=== PATIENT | female | born 1950 | race Caucasian/White ===

== ENCOUNTER → 2016-06-08 | Outpatient (CLI) | payer BC ==
[~2016-06-08] MED LIST: ALPR-411 PO; CHOL100010 PO; CYCL10TA6 PO; LEVO125T72 PO; LISI10TA PO; METO1TAB31 PO; WARF3TAB6 PO; ZCRT/40 PO
--- NOTE | 2016-06-08 15:08 | MAMMOGRAPHY REPORT ---
BILATERAL DIGITAL SCREENING MAMMOGRAM WITH CAD: 06/08/2016 CLINICAL HISTORY: Routine screening. Patient has no complaints. TECHNIQUE: Current study was also evaluated with a Computer Aided Detection (CAD) system. Bilatera l CC and MLO views were obtained. COMPARISON: Comparison is made to exams dated: 05/28/2015 mammogram, 05/27/2014 mammogram, 05/26/2013 mammogram, 05/23/2012 mammogram, 05/23/2011 mammogram, and 05/19/2010 mammogram - [facility] nt. BREAST COMPOSITION: There are scattered areas of fibroglandular density in both breasts. FINDINGS: No suspicious masses, calcifications, or areas of architectural distortion are noted in e ither breast. There has been no significant interval change compared to prior exams. A linear scar marker denotes a scar on the right superior breast. Bilateral benign-appearing calcifications, pred ominantly in the right breast, are stable compared to prior exams. IMPRESSION: ACR BI-RADS CATEGORY 2: BENIGN There is no mammographic evidence of malignancy. A 1 year screening mammogram is recommended. The p atient will receive written notification of the results. Approximately 10% of breast cancers are not detected with mammography. A negative mammographic repor t should not delay biopsy if a clinically suggestive mass is present. Lenora Isaac M.D. /:06/08/2016 13:25:21 Textile Machine Operator: Re [employer], [facility] letter sent: Normal 1/2 BI-RADS Code: ACR BI-RADS Category 2: Benign
== END | disposition home or self-care (01) ==
LOC: C.MAMM 12:24
PROVIDERS: ATTEND Family Medicine
DX: Z12.31 Encounter for screening mammogram for malignant neoplasm of breast (principal)

== ENCOUNTER → 2016-09-18 | Outpatient (CLI) | payer BC ==
--- NOTE | 2016-09-18 12:02 | DIAGNOSTIC IMAGING REPORT ---
RIGHT HIP UNILATERAL MIN 2 VIEWS HISTORY: 66-year-old female presents with right hip pain. No reported trauma. COMPARISON: None available TECHNIQUE: AP and frog-leg views of the right hip. FINDINGS: There is moderate joint space narrowing with subchondral sclerosis and marginal spurring of the femoral acetabular joint. No acute fracture, dislocation, or avascular necrosis. No radiopaque foreign body. IMPRESSION: 1. No acute fracture or dislocation. 2. Moderate osteoarthritis of the right hip. Electronically signed by: Miguel Baugh 09/18/2016 12:00 PM Dictated Date/Time: 09/18/2016 11:50 AM
== END | disposition home or self-care (01) ==
LOC: C.RDSM 11:00
PROVIDERS: ATTEND Internal Medicine
DX: M16.11 Unilateral primary osteoarthritis, right hip (principal)

== ENCOUNTER → 2017-07-03 | Outpatient (CLI) | payer BC ==
[~2017-07-03] MED LIST changes: +METO-478 PO; -METO1TAB31 PO
--- NOTE | 2017-07-04 07:50 | MAMMOGRAPHY REPORT ---
BILATERAL DIGITAL SCREENING MAMMOGRAM TOMOSYNTHESIS WITH CAD: 07/03/2017 CLINICAL HISTORY: Routine screening. Patient has no complaints. TECHNIQUE: Breast tomosynthesis in addition to standard 2D mammography was performed. Current study was also evaluated with a Computer Aided Detection (CAD) system. COMPARISON: Comparison is made to exams dated: 06/08/2016 mammogram, 05/28/2015 mammogram, 05/27/2014 m ammogram, 05/26/2013 mammogram, 05/23/2012 mammogram, and 05/23/2011 mammogram - [facility]. BREAST COMPOSITION: There are scattered areas of fibroglandular density in both breasts. FINDINGS: A linear scar marker overlies the medial right breast. There are stable asymmetries in the lateral right breast and punctate microcalcifications bilaterally. No new suspicious mass, computer systems software architect ural distortion or cluster of microcalcifications is seen. IMPRESSION: ACR BI-RADS CATEGORY 1: NEGATIVE There is no mammographic evidence of malignancy. A 1 year screening mammogram is recommended. The pa tient will receive written notification of the results. Approximately 10% of breast cancers are not detected with mammography. A negative mammographic report should not delay biopsy if a clinically suggestive mass is present. Nuha Sneed M.D. ay/:07/03/2017 15:43:28 Innovation Analyst: Dorys PATEL)(Consuelo), [facility] letter sent: Normal 1/2 BI-RADS Code: ACR BI-RADS Category 1: Negative
== END | disposition home or self-care (01) ==
LOC: C.MAMM 12:30
PROVIDERS: ATTEND Family Medicine
DX: Z12.31 Encounter for screening mammogram for malignant neoplasm of breast (principal)

== ENCOUNTER 2025-01-20 11:44 | Observation (INO) ==
--- NOTE | 2025-01-20 12:10 | Emergency Department Note ---
Impression & Plan Acute dyspnea, Acute CHF, Pulmonary edema, Elevated brain natriuretic peptide (BNP) level, Acute hypokalemia, Acute hypoxemic respiratory failure ED Provider Note HISTORY OF PRESENT ILLNESS: Patient is a 74-year-old female presenting with shortness of breath. Patient reports that she has been feeling short of breath for the last 6 days. Reports that symptoms have been getting progressively worse. She reports shortness of breath initially was just with any sort of exertion, but has now progressed to shortness of breath at rest. She states that her shortness of breath is significantly worse when she tries to go up or down her stairs at home. She denies any chest pain. She states she has gained 4 pounds in the last 4 days. She denies any abdominal pain, nausea or vomiting. She is on Eliquis for recent history of CVA. She does not wear any supplemental oxygen at baseline. She does report a nonproductive cough. Reports some nasal congestion. Denies any recent sick contact exposures or recent fever. Denies any DVT or PE history. Denies any history of cardiac stents. ROS: as above PHYSICAL EXAM: Constitutional: Patient appears in no acute distress. HENT: Head: Normocephalic and atraumatic. Eyes: EOMI, PERRL Mouth/Throat: Mucous membranes moist. Neck: Trachea midline. Neck supple. Cardiovascular: Tachycardic with irregular rhythm. No murmurs, rubs or gallops. Intact distal pulses. Pulmonary/Chest: No respiratory distress. Breath sounds clear and equal bilaterally. Coarse breath sounds bilaterally. Decreased breath sounds in the lung bases. On 2 L nasal cannula. Abdominal: Abdomen soft, no tenderness, rebound or guarding. Musculoskeletal: No edema, tenderness or deformity noted. Skin: Warm and dry. No rash, erythema, pallor or cyanosis Psychiatric: Appropriate mood and affect for situation. Neurological: Alert and keenly responsive. CN II-XII grossly intact, moving all extremities equally and fully. MDM: - Vitals signs showed tachycardic and hypoxic. Patient placed on 2 L nasal cannula. - History obtained via patient. History as above. - Chronic conditions affecting care: CVA; COPD; Graves' disease; Afib - Differential diagnoses include, but are not limited to: Congestive heart failure; acute coronary syndrome; COPD/asthma exacerbation; pulmonary edema; pulmonary embolism; pneumonia; pneumothorax; viral syndrome - Order placed for continuous cardiac monitoring. At this time, monitor showed rate of 94 bpm with normal sinus rhythm, per my interpretation. - External medical records reviewed. Discharge summary dated 11/18/2024 was reviewed. Patient was admitted at that time secondary to strokelike symptoms. She did receive TNK on 11/15/2024. - EKG image interpreted by myself showed atrial fibrillation. Rate 94 bpm. QT 368. No acute ischemic changes. - Laboratory workup interpreted by myself showed leukocytosis (WBC 14.32); normal PT/INR; slight hyponatremia (Na 132); hypokalemia (K 3.3); normal troponin; elevated BNP (552) - CXR image reviewed interpreted by myself showed pulmonary edema, per my interpretation. Radiology notes moderate pulmonary edema with moderate left and small right pleural effusions. - Patient on 2L NC. - Viral respiratory panel negative. - Patient given 40 mg IV lasix - Discussion was had with case management rn about patient's case and need for admission - Hospitalist consulted for admission - [facility] and management. ASSESSMENT AND PLAN: Diagnosis: Acute dyspnea; acute CHF; elevated BNP; acute hypokalemia; acute hypoxic respiratory failure; pulmonary edema Plan: Admit Past Med/Surg History Problem List (Updated 01/20/25 @ 15:28 by Rowena Alexander MD) Acute hypoxemic respiratory failure (Acute) Acute hypokalemia (Acute) Elevated brain natriuretic peptide (BNP) level (Acute) Pulmonary edema (Acute) Acute CHF (Acute) Acute dyspnea (Acute) Carotid stenosis, bilateral Cardioembolic stroke Change in vision (Acute) Hx of Graves' disease 2001, "treatment to have my thyroid radioactived out of me" Cerebral artery disease Hypertension controlled, stable per pt New onset a-fib (Acute) Stroke-like symptoms (Acute) Aortic regurgitation Hx of mitral valve prolapse s/p repair Status post right hip replacement (~11/2021) Encounter for pre-operative examination Medical History COPD (chronic obstructive pulmonary disease) History of anxiety Surgical History Hx of cardiac cath 2013, [place], no stents; f/u [facility]>sent to [facility] for Mitral Valve Repair following. Hx of tonsillectomy Hx of colonoscopy Hx of cataract extraction bilat. Hx of mitral valve repair 07/2012, [facility], "repaired valve, did not replace it"; f/u [facility] Social History Smoking Status: Never smoker Second Hand Exposure: No; Do You Dip or Chew Tobacco: No; Hx Alcohol Use: Yes Alcohol type: wine Hx Substance Use: No Preferred Language: Urdu Communication Ability: Effective Statistics Teacher Required: No Beliefs That Will Affect Care: None Current Living Situation: Spouse Feels Safe at Home: Yes Assistive Devices: Glasses Allergies Allergies Allergy/AdvReac Type Severity Reaction Status Date / Time No Known Allergies Allergy Verified 11/27/24 15:38 Home Meds Home Medications Medication Instructions Recorded Confirmed alprazolam 0.5 mg tablet (Xanax) 0.5 mg PO BID PRN Anxiety 10/14/21 01/20/25 atorvastatin 40 mg tablet 40 mg PO DAILY 10/14/21 01/20/25 levothyroxine 137 mcg tablet 137 mcg PO DAILYBB 10/14/21 01/20/25 lisinopril 40 mg tablet 40 mg PO QAM 10/14/21 01/20/25 metoprolol succinate 100 mg 50 mg PO BID 10/14/21 01/20/25 tablet,extended release 24 hr trazodone 50 mg tablet 50 mg PO HS 10/14/21 01/20/25 amlodipine 10 mg tablet 10 mg PO QAM 11/15/24 01/20/25 apixaban 5 mg tablet (Eliquis) 5 mg PO BID 01/20/25 01/20/25 Previous Rx's Medication Instructions Recorded aspirin 81 mg tablet,delayed 81 mg PO QAM #30 tabs 11/18/24 release Results & Data (ED) Vital Signs Vital Signs - 24 hr 01/20/25 11:47 01/20/25 12:15 01/20/25 12:15 Temperature 36.7 C Temperature Source Oral Pulse Rate 92 H 88 Pulse Rate [Apical] Pulse Strength [Apical] Respiratory Rate 22 Respiratory Effort / Characteristics Spontaneous Respiratory Depth Respiratory Pattern Blood Pressure 139/64 Blood Pressure [Right Arm] Blood Pressure Mean 89 Blood Pressure Mean [Right Arm] Blood Pressure Position Sitting Pulse Oximetry 86 L 87 L Oxygen Delivery Method Room Air Nasal Cannula Oxygen Flow Rate 0 Sepsis Recent Fever Within 48 Hours No Sepsis New/Unexplained Change in Mental Status N/A Sepsis Action Taken by Nursing No Action Required Oxygen Flow Rate - Titration 2 Pulse Oximetry Post Tiitration 94 01/20/25 13:15 01/20/25 14:09 Temperature Temperature Source Pulse Rate Pulse Rate [Apical] 94 H Pulse Strength [Apical] Normal Respiratory Rate 18 Respiratory Effort / Characteristics Non-Labored Spontaneous Respiratory Depth Normal Respiratory Pattern Regular Blood Pressure Blood Pressure [Right Arm] 148/76 H 162/89 H Blood Pressure Mean Blood Pressure Mean [Right Arm] 100 113 Blood Pressure Position Pulse Oximetry 92 Oxygen Delivery Method Nasal Cannula Oxygen Flow Rate 2 Sepsis Recent Fever Within 48 Hours Sepsis New/Unexplained Change in Mental Status Sepsis Action Taken by Nursing Oxygen Flow Rate - Titration Pulse Oximetry Post Tiitration Laboratory Data 01/20/25 12:10 01/20/25 12:10 Lab Results 01/20/25 01/20/25 Range/Units 12:10 14:44 WBC 14.32 H (4.8-10.8) K/ul RBC 4.86 (4.20-5.40) M/uL Hgb 13.9 (12.0-16.0) g/dl Hct 42.0 (37.0-47.0) % MCV 86.4 (80.0-100.0) fL MCH 28.6 (25.0-34.0) pg MCHC 33.1 (32.0-36.0) g/dL RDW Std Deviation 49.5 H (36.4-46.3) fL RDW Coeff of Ginny 15.8 H (11.5-14.5) % Plt Count 533 H (130-400) K/uL MPV 10.4 (9.4-12.4) fL Immature Gran % (Auto) 0.5 % Neut % (Auto) 85.9 % Lymph % (Auto) 7.2 % Mineral % (Auto) 5.1 % Eos % (Auto) 0.5 % Baso % (Auto) 0.8 % Neut # (Auto) 12.31 H (1.40-6.50) K/uL Lymph # (Auto) 1.03 L (1.20-3.40) K/uL Mineral # (Auto) 0.73 H (0.11-0.59) K/uL Eos # (Auto) 0.07 (0.00-0.50) K/uL Baso # (Auto) 0.11 (0.00-0.20) K/uL Immature Gran # (Auto) 0.07 (0.01-0.20) K/uL PT 11.8 (9.0-12.0) Seconds INR 1.1 (0.9-1.1) Sodium 132 L (136-145) mmol/L Potassium 3.3 L (3.5-5.1) mmol/L Chloride 99 (98-107) mmol/L Carbon Dioxide 23 (21-32) mmol/L Anion Gap 10 (3-11) BUN 13 (6-23) mg/dl Creatinine 0.59 L (0.6-1.2) mg/dl Est Cr Clr Drug Dosing 79.3 ml/min eGFR 93.34 BUN/Creatinine Ratio 22.0 H (10-20) Glucose 124 H (70-99(Fasting)) mg/dl Calcium 9.7 (8.6-10.3) mg/dl Magnesium 2.1 (1.7-2.4) mg/dl Total Bilirubin 1.0 (0.2-1.0) mg/dl AST 25 (13-39) U/L ALT 23 (7-52) U/L Alkaline Phosphatase 97 (34-104) U/L Troponin I High Sens 11.3 (0-14) pg/ml B-Natriuretic Peptide 552 H (0-100) pg/ml Total Protein 7.6 (6.0-8.3) gm/dl Albumin 4.4 (3.4-5.0) gm/dl Globulin 3.2 (2.5-4.0) gm/dl Albumin/Globulin Ratio 1.4 (0.9-2) Urine Color Yellow Urine Appearance Clear (Clear) Urine pH 6.5 (4.5-7.5) Ur Specific [place] 1.008 (1.000-1.030) Urine Protein Negative (Negative) Urine Glucose (UA) Negative (Negative) Urine Ketones Negative (Negative) Urine Blood Negative (Negative) Urine Nitrite Negative (Negative) Urine Bilirubin Negative (Negative) Urine Urobilinogen Negative (Negative) Ur Leukocyte Esterase Negative (Negative) Urine Comment Adenovirus (PCR) Not Detected (NotDetected) B. pertussis DNA (PCR) Not Detected (NotDetected) B.parapertussis DNA PCR Not Detected (NotDetected) C. pneumoniae DNA (PCR) Not Detected (NotDetected) Coronavirus OC43 (PCR) Not Detected (NotDetected) Coronavirus HKU1 (PCR) Not Detected (NotDetected) Coronavirus 229E (PCR) Not Detected (NotDetected) SARS-CoV-2 (PCR) Not Detected (NotDetected) Coronavirus NL63 (PCR) Not Detected (NotDetected) Human Metapneumovir PCR Not Detected (NotDetected) Influenza Type A (PCR) Not Detected (NotDetected) Influenza Type B (PCR) Not Detected (NotDetected) M. pneumoniae (PCR) Not Detected (NotDetected) Parainfluenza 1 (PCR) Not Detected (NotDetected) Parainfluenza 2 (PCR) Not Detected (NotDetected) Parainfluenza 3 (PCR) Not Detected (NotDetected) Parainfluenza 4 (PCR) Not Detected (NotDetected) RSV (PCR) Not Detected (NotDetected) Entero/Rhino (PCR) Not Detected (NotDetected) Administered Medications Discontinued Medications Furosemide (Furosemide 40 Mg/4 Ml Vial) 40 mg IV ONE ONE Stop: 01/20/25 14:04 Last Admin: 01/20/25 14:08 Dose: 40 mg Documented By: CAP Potassium Chloride (Potassium Chloride Crtab 20 Meq Tabcr) 40 meq PO NOW STA Stop: 01/20/25 14:52 Last Admin: 01/20/25 14:58 Dose: 40 meq Documented By: CAP Imaging Data Radiologist's Impression: Chest X-Ray 01/20/25 12:04 XR chest 1V portable CLINICAL HISTORY: Dyspnea. COMPARISON STUDY: Chest radiograph October 24, 2021. FINDINGS: There is no pneumothorax. Moderate left and small right pleural effusions are noted. There are suspected bibasilar opacities. Interstitial thickening is present. The heart is moderately enlarged. Prosthetic cardiac valve is again noted. Bilateral hilar prominence is likely related to pulmonary vasculature. IMPRESSION: Cardiomegaly. Moderate pulmonary edema with moderate left and small right pleural effusions with associated bibasilar opacities which could represent atelectasis or consolidation. Radiographic follow-up is recommended. ACT 112: Negative or not required by law. Electronically signed by: Emanuel Stallings M.D. 01/20/2025 1:19 PM Discharge Plan Visit Data Chief Complaint: Cardiac Assessment Stated Complaint: CONGESTED HEART FAILURE ED Provider: Rowena Alexander Discharge Problem: Acute dyspnea, Acute CHF, Pulmonary edema, Elevated brain natriuretic peptide (BNP) level, Acute hypokalemia, Acute hypoxemic respiratory failure Patient Disposition: Admitted As Inpatient Condition: Fair Forms Stand Alone Forms: [facility] [employer] Prescriptions Prescriptions: No Action atorvastatin 40 mg Tablet 40 mg PO DAILY trazodone 50 mg Tablet 50 mg PO HS levothyroxine 137 mcg Tablet 137 mcg PO DAILYBB metoprolol succinate 100 mg Tablet Extended Release 24 Hr 50 mg PO BID alprazolam [Xanax] 0.5 mg Tablet 0.5 mg PO BID PRN (Reason: Anxiety) lisinopril 40 mg Tablet 40 mg PO QAM Hold Instructions: Resume on 11/25/24. Eliquis 5 mg tablet 5 mg PO BID amlodipine 10 mg tablet 10 mg PO QAM Hold Instructions: Resume on 11/20/24. aspirin 81 mg Tablet,Delayed Release (Dr/Ec) 81 mg PO QAM Qty: 30 0RF Referrals Referrals: Sierra Flores PA-C [Primary Care Provider] -
[2025-01-20 12:34] LABS: Hematocrit (blood only) 42.0 % (37.0-47.0); Hemoglobin 13.9 g/dl (12.0-16.0); Immature Granulocytes # (auto) 0.07 K/uL (0.01-0.20); Immature Granulocytes % (auto) 0.5 %; Mean Corpuscular Hemoglobin 28.6 pg (25.0-34.0); Mean Corpuscular Volume 86.4 fL (80.0-100.0); Platelet Count 533 K/uL (130-400); RDW Standard Deviation 49.5 fL (36.4-46.3); Red Blood Count 4.86 M/uL (4.20-5.40); White Blood Count 14.32 K/ul (4.8-10.8)
[2025-01-20 12:54] LABS: Alanine Aminotransferase 23.0 U/L (7-52); Albumin Globulin Ratio 1.4 (0.9-2); Albumin Level 4.4 gm/dl (3.4-5.0); Alkaline Phosphatase 97.0 U/L (34-104); Anion Gap 10.0 (3-11); Bilirubin,Total 1.0 mg/dl (0.2-1.0); Blood Urea Nitrogen 13.0 mg/dl (6-23); Calcium 9.7 mg/dl (8.6-10.3); Carbon Dioxide 23.0 mmol/L (21-32); Chloride 99.0 mmol/L (98-107); Creatinine Clr Calc Pharmacy 79.3 ml/min; Globulin 3.2 gm/dl (2.5-4.0); Glucose 124.0 mg/dl (70-99(Fasting)); Magnesium 2.1 mg/dl (1.7-2.4); Potassium 3.3 mmol/L (3.5-5.1); Sodium 132.0 mmol/L (136-145); Total Protein 7.6 gm/dl (6.0-8.3)
[2025-01-20 12:58] LABS: INR 1.1 (0.9-1.1); Prothrombin Time 11.8 Seconds (9.0-12.0)
--- NOTE | 2025-01-20 13:20 | XRay Report ---
XR chest 1V portable CLINICAL HISTORY: Dyspnea. COMPARISON STUDY: Chest radiograph October 24, 2021. FINDINGS: There is no pneumothorax. Moderate left and small right pleural effusions are noted. There are suspected bibasilar opacities. Interstitial thickening is present. The heart is moderately enlarg ed. Prosthetic cardiac valve is again noted. Bilateral hilar prominence is likely related to pulmonar y vasculature. IMPRESSION: Cardiomegaly. Moderate pulmonary edema with moderate left and small right pleural effusi ons with associated bibasilar opacities which could represent atelectasis or consolidation. Radiograp hic follow-up is recommended. ACT 112: Negative or not required by law. Electronically signed by: Emanuel Stallings M.D. 01/20/2025 1:19 PM
[2025-01-20 13:39] LABS: Chlamydia pneumoniae PCR Not Detected (NotDetected); Coronavirus 229E PCR Not Detected (NotDetected); Coronavirus CoV-2 (COVID19)PCR Not Detected (NotDetected); Coronavirus HKU1 PCR Not Detected (NotDetected); Coronavirus NL63 PCR Not Detected (NotDetected); Coronavirus OC43PCR Not Detected (NotDetected); Human Metapneumovirus PCR Not Detected (NotDetected); Parainfluenza Virus 1 PCR Not Detected (NotDetected); Parainfluenza Virus 2 PCR Not Detected (NotDetected); Parainfluenza Virus 3 PCR Not Detected (NotDetected); Parainfluenza Virus 4 PCR Not Detected (NotDetected); Respiratory Syncytial VirusPCR Not Detected (NotDetected); Rhinovirus/Enterovirus PCR Not Detected (NotDetected)
[2025-01-20] MEDS: FUROSEMIDE 40 MG/4 ML VIAL IV ONE (14:08)
--- NOTE | 2025-01-20 14:50 | History & Physical Report ---
<Statement entered by Corbin Reyes, - 01/20/25 17:11> seen and examined New onset CHF. suspect HFpEF. cardio consulted. continue diuresis. checking CT chest w/o contrast to r/o PNA. 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 Suspected CHF, new onset Dyspnea, 4# wt gain x 5 days BNP 552 CXR with cardiomegaly. Moderate pulmonary edema with moderate left and small right pleural effusions with associated bibasilar opacities which could represent atelectasis or consolidation Last echo 11/10 with mild MS, mild MR Given 40mg IV lasix in ED Repeat echo ordered, strict I&Os, daily weights, routine consult for Dr. Tyson, continue daily 40mg IV Lasix for now, low sodium diet Leukocytosis ? Reactive but CT chest wo con pending to better evaluate for PNA given cough and congestion Atrial fibrillation Diagnosed in October in setting of cardioembolic stroke Has been persistent but rate controlled per Dr. Tyson Anticoagulated on Eliquis Continue Toprol H/o Embolic CVA S/P TNK at 1921 on 11/15/24 Continue aspirin, Eliquis, statin Hypertension Continue Toprol, amlodipine, lisinopril Dyslipidemia Continue Statin Graves' disease s/p surgery Postsurgical hypothyroidism Continue levothyroxine Anxiety PRN home Xanax DVT Ppx: Eliquis Code status: FULL PCP: MANDEEP Flores Dispo: Admitted to PCU Patient seen in collaboration with Dr. Reyes. Please see addendum. I spent a total of 75 minutes coordinating, documenting, and providing care for this patient excluding time spent in the performance of separately billed services or time spent by another provider/QHP. 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 Patient was notably SOB when walking into an appointment last week and then noticed she was SOB at rest while watching TV 5 days ago. Associated with palpitations. Since then, SOB has progressed and also endorses dry cough and nasal congestion. Thought at first she was having allergies but SOB persisted through the weekend into today, prompting presentation in ED. Notes 4# weight gain in 5 days despite poor appetite. [place] warm last evening but did not take temperature. No chills, headache, lightheadedness, CP, N/V, abd pain, dysuria, diarrhea or constipation. Follows with Dr. Tyson for cardiology and was last see mid-November. Last echo in 10/2024 with mild MS, mild MR. A fib has been persistent since diagnosis 10/2024 in setting of CVA. Asymptomatic and rate controlled since then. Anticoagulated on Eliquis. Allergies Allergy/AdvReac Type Severity Reaction Status Date / Time No Known Allergies Allergy Verified 11/27/24 15:38 Home Medications Medication Instructions Recorded Confirmed Type alprazolam 0.5 mg tablet (Xanax) 0.5 mg PO BID PRN Anxiety 10/14/21 01/20/25 History atorvastatin 40 mg tablet 40 mg PO DAILY 10/14/21 01/20/25 History levothyroxine 137 mcg tablet 137 mcg PO DAILYBB 10/14/21 01/20/25 History lisinopril 40 mg tablet 40 mg PO QAM 10/14/21 01/20/25 History metoprolol succinate 100 mg 50 mg PO BID 10/14/21 01/20/25 History tablet,extended release 24 hr trazodone 50 mg tablet 50 mg PO HS 10/14/21 01/20/25 History amlodipine 10 mg tablet 10 mg PO QAM 11/15/24 01/20/25 History aspirin 81 mg tablet,delayed 81 mg PO QAM #30 tabs 11/18/24 01/20/25 Rx release apixaban 5 mg tablet (Eliquis) 5 mg PO BID 01/20/25 01/20/25 History Past Med/Surg History Problem List (Updated 01/20/25 @ 16:48 by Fabiana Mayorga PA-C) CHF (congestive heart failure) Dyspnea Acute hypoxemic respiratory failure (Acute) Acute hypokalemia (Acute) Elevated brain natriuretic peptide (BNP) level (Acute) Pulmonary edema (Acute) Acute CHF (Acute) Acute dyspnea (Acute) Carotid stenosis, bilateral Change in vision (Acute) Hx of Graves' disease 2001, "treatment to have my thyroid radioactived out of me" Cerebral artery disease Hypertension controlled, stable per pt Stroke-like symptoms (Acute) Aortic regurgitation Hx of mitral valve prolapse s/p repair Medical History (Updated 01/20/25 @ 16:48 by Fabiana Mayorga PA-C) Cardioembolic stroke COPD (chronic obstructive pulmonary disease) History of anxiety Surgical History (Updated 01/20/25 @ 16:41 by Fabiana Mayorga PA-C) Status post right hip replacement (~11/2021) [place]x of cardiac cath 2012, [place], no stents; f/u German Key>sent to [facility] for Mitral Valve Repair following. Hx of tonsillectomy Hx of colonoscopy Hx of cataract extraction bilat. Hx of mitral valve repair 07/2012, [facility], "repaired valve, did not replace it"; f/u German Landa Social History Smoking Status: Never smoker Second Hand Exposure: No; Do You Dip or Chew Tobacco: No; Hx Alcohol Use: Yes Alcohol type: wine Hx Substance Use: No Preferred Language: Mauritian Communication Ability: Effective Salesperson New Cars Required: No Beliefs That Will Affect Care: None Current Living Situation: Spouse Other Information That Helps Us Care for You: No Feels Safe at Home: Yes Safety Concerns: Feels Safe At This Time Assistive Devices: Glasses Review of Systems Review of Systems: At least ten systems reviewed and negative except as noted in the HPI. Physical Exam Physical Exam: General Appearance: WD/WN, vitals as above, NAD, sitting up in bed, pleasant, conversing easily Head: normocephalic, atraumatic Eyes: normal inspection, PERRL, conjunctivae normal, anicteric sclerae ENT: external ear and nose normal, oropharynx normal Neck: normal visual inspection Respiratory: increased respiratory effort, diminished at bases bilaterally. No accessory muscle use Cardiovascular: irregular rate & rhythm, normal peripheral pulses, no BLE edema. Vessels: + JVD Chest: normal inspection of chest Abdomen/GI: normal bowel sounds, soft, nontender, no hepatosplenomegaly Extremities/Musculoskeletal: no cyanosis or clubbing, extremities motor strength 5/5 Neurologic: PERRL, EOMI, accommodation nl, no face palsy, no dysarthria, CN's II-XI intact bilaterally and moves all extremities Psychiatric: A+Ox3, euthymic affect Skin: no rashes, normal color, warm/dry Results & Data Results & Data Vital Signs (Past 12 Hours) Vital Signs Temp Pulse Pulse Resp BP BP Pulse Ox 01/20/25 14:09 162/89 H 01/20/25 13:15 94 H 18 148/76 H 92 01/20/25 12:15 88 01/20/25 12:15 87 L 01/20/25 11:47 36.7 C 92 H 22 139/64 86 L O2 Del Method O2 Flow Rate 01/20/25 14:09 01/20/25 13:15 Nasal Cannula 2 01/20/25 12:15 01/20/25 12:15 Nasal Cannula 0 01/20/25 11:47 Room Air Laboratory Results Short CBC 01/20/25 Range/Units 12:10 WBC 14.32 H (4.8-10.8) K/ul Hgb 13.9 (12.0-16.0) g/dl Hct 42.0 (37.0-47.0) % Plt Count 533 H (130-400) K/uL BMP 01/20/25 12:10 Sodium 132 L Potassium 3.3 L Chloride 99 Carbon Dioxide 23 BUN 13 Creatinine 0.59 L Glucose 124 H Calcium 9.7 Liver Function 01/20/25 Range/Units 12:10 Total Bilirubin 1.0 (0.2-1.0) mg/dl AST 25 (13-39) U/L ALT 23 (7-52) U/L Alkaline Phosphatase 97 (34-104) U/L Albumin 4.4 (3.4-5.0) gm/dl Urine 01/20/25 Range/Units 14:44 Urine Color Yellow Urine Appearance Clear (Clear) Urine pH 6.5 (4.5-7.5) Ur Specific [place] 1.008 (1.000-1.030) Urine Protein Negative (Negative) Urine Glucose (UA) Negative (Negative) Diagnostic Findings Chest X-Ray 01/20/25 12:04 XR chest 1V portable CLINICAL HISTORY: Dyspnea. COMPARISON STUDY: Chest radiograph October 24, 2021. FINDINGS: There is no pneumothorax. Moderate left and small right pleural effusions are noted. There are suspected bibasilar opacities. Interstitial thickening is present. The heart is moderately enlarged. Prosthetic cardiac valve is again noted. Bilateral hilar prominence is likely related to pulmonary vasculature. IMPRESSION: Cardiomegaly. Moderate pulmonary edema with moderate left and small right pleural effusions with associated bibasilar opacities which could represent atelectasis or consolidation. Radiographic follow-up is recommended. ACT 112: Negative or not required by law. Electronically signed by: Emanuel Stallings M.D. 01/20/2025 1:19 PM ECG Additional Comments: atrial fibrillation at 94 bpm
[2025-01-20 14:54] LABS: Appearance Urine Clear (Clear); Glucose Urine UA Negative (Negative)
[2025-01-20] MEDS: POTASSIUM CHLORIDE CRTAB 20 MEQ TABCR PO STA (14:58)
[2025-01-20] MEDS ORDERED: ACETAMINOPHEN 325 MG TAB PO PRN (16:05)
[2025-01-20] MEDS ORDERED: ONDANSETRON INJ 2 MG/ML 2 ML VIAL IV PRN (16:05)
[2025-01-20] MEDS ORDERED: MELATONIN 3 MG TAB PO PRN (16:05)
[2025-01-20] MEDS: APIXABAN 5 MG TABLET PO SCH (20:05)
[2025-01-20] MEDS: METOPROLOL SUCC 50MG EXT REL TAB PO SCH (20:06)
--- NOTE | 2025-01-20 21:25 | CT Scan Report ---
Exam(s): CT CHEST Without Contrast EXAM: CT Chest Without Intravenous Contrast CLINICAL HISTORY: Reason for exam: eval for PNA. TECHNIQUE: Axial computed tomography images of the chest without intravenous contrast. CTDI is 12.7 mGy and DLP is 386 mGy-cm. Automated exposure control was utilized for the study. A dose lowering technique was utilized adhering to the principles of ALARA. COMPARISON: Chest x-ray from 01/20/2025 FINDINGS: Lungs: Prominent pulmonary vasculature with perihilar and bibasilar edema and atelectasis. No mass. Pleural space: Small bilateral pleural effusions layering posteriorly measuring up to 5 cm thick on the right and 3 cm thick on the left. No pneumothorax. Heart: Severe mitral calcification. The heart is mildly enlarged. No pericardial effusion is seen. No significant coronary artery calcifications. Bones/joints: Mild degenerative changes in the thoracic spine. No acute fracture or destructive bone lesion is seen. Soft tissues: Unremarkable. Vasculature: Thoracic aorta is mildly calcified. The aortic arch is upper limits of normal measuring 3.8 mm. This is a noncontrast study. No thoracic aortic aneurysm. Lymph nodes: Unremarkable. No enlarged lymph nodes. IMPRESSION: 1. Cardiomegaly and severe mitral calcification. Prominent pulmonary vasculature with perihilar and bibasilar edema and atelectasis. 2. Small bilateral pleural effusions layering posteriorly measuring up to 5 cm thick on the right and 3 cm thick on the left. Consider CHF. Electronically signed by: Hussein Mayorga MD 01/20/25 21:24 PM
[2025-01-21 06:12] LABS: Hematocrit (blood only) 36.9 % (37.0-47.0); Hemoglobin 12.1 g/dl (12.0-16.0); Mean Corpuscular Hemoglobin 28.7 pg (25.0-34.0); Mean Corpuscular Volume 87.4 fL (80.0-100.0); Platelet Count 436 K/uL (130-400); RDW Standard Deviation 49.6 fL (36.4-46.3); Red Blood Count 4.22 M/uL (4.20-5.40); White Blood Count 13.96 K/ul (4.8-10.8)
[2025-01-21] MEDS: LEVOTHYROXINE SODIUM 137 MCG TABLET PO SCH (06:45)
[2025-01-21 06:48] LABS: Anion Gap 8.0 (3-11); Blood Urea Nitrogen 12.0 mg/dl (6-23); Calcium 8.7 mg/dl (8.6-10.3); Carbon Dioxide 23.0 mmol/L (21-32); Chloride 105.0 mmol/L (98-107); Creatinine Clr Calc Pharmacy 80.5 ml/min; Glucose 102.0 mg/dl (70-99(Fasting)); Magnesium 2.0 mg/dl (1.7-2.4); Potassium 4.0 mmol/L (3.5-5.1); Sodium 136.0 mmol/L (136-145)
[2025-01-21] MEDS: ATORVASTATIN 40 MG TAB PO SCH (09:00)
[2025-01-21] MEDS: ASPIRIN 81 MG ECTAB PO SCH (09:01)
[2025-01-21] MEDS: FUROSEMIDE 40 MG/4 ML VIAL IV SCH ×2 (09:02→17:41)
--- NOTE | 2025-01-21 10:00 | XCELERA ---
[id number]
--- NOTE | 2025-01-21 11:04 | Cardiology Consultation ---
Date of Consultation January 21, 2025 Assessment & Plan (1) CHF (congestive heart failure): 2. Mitral valve repairPostrepair with annuloplasty ring 2012. Mild MS, mild to moderate MR on echo 02/10 3. Persistent AFdiagnosed 10/2024 in the setting of CVA. Asymptomatic, [id number] 7. On Eliquis 4. Moderate AI 5. DyslipidemiaLDL 80 10/2024, coronary artery calcification on chest CT 6. HypertensionCCB, MAKENNA, BB 7. Mild ICA disease, INDUSTRIAL CLEANING TECHNICIAN/vertebral disease 8. Graves' disease post GOMEZ Admitted with new acute heart failure with preserved ejection fraction. No clear precipitants. Some concern may be more susceptible to recurrent heart failure with persistent AF and new at least moderate AI Still with persistent congestion on exam Plan on continued IV diuresis and GDMT. Increase Lasix to 40 mg twice daily Start SGLT2 Likely will add spironolactone at some point Continue to monitor I's/O's, daily weights, creatinine Continue current Eliquis, Toprol-XL Continue current amlodipine, lisinopril Continue statin Long-term will consider cardioversion/rhythm control when closer to euvolemic If recurrent heart failure episodes as an outpatient may need further evaluation of valvular disease/AI with MORENITA Will continue to follow. History of Present Illness Attending Physician: Isra Aviles MD History of Present Illness Ms. Gómez is a very pleasant 74 year-old woman seen today in hospital for new acute heart failure. She is well-known to me from the outpatient setting, followed for her mitral valve disease post remote repair. More recently was seen 11/2024 here today for after recent CVA in the setting of newly diagnosed AF. About 1 week ago started noting increased shortness of breath initially with exertion, going up steps. Accompanied by wheezing and initially thought was having allergies to new furniture. Shortness of breath progressed to minimal exertion and eventually at rest. Denies any chest pain. No palpitations. No real lower extremity edema. Mild orthopnea. No recent viral illness. No change in diet. Recorded weight up 8 pounds from 11/2024. In ED hypertensive to 160s, minimally hypoxic to high 80s. Chest x-ray showed new pulmonary edema and CT scan with edema and moderate bilateral pleural effusions. BNP elevated at 552. HS TropI normal. ECG again showed persistent AF, ventricular rate 94 with old anterior infarct and no new ST changes. Repeat echo this morning showed EF 60% with no new wall motion abnormalities. Has at least moderate AI, mild to moderate MR. Signs of elevated left atrial filling pressures and moderate pulmonary hypertension. Has received 1 dose of IV Lasix yesterday and additional dose this morning, - 1800, recorded weights unchanged. Today reports modest improvement in breathing but has not done significant walking. Prior cardiovascular history includes: Acute CVA treated with TNK [facility] 11/15/2024 with acute CVA and treated with TNK. Noted to be in rate controlled AF. Brain MRI with multifocal abnormalities consistent with embolic infarcts. Head/neck CTA with approximately 50% bilateral proximal ICA disease (mild on my review). Multifocal INDUSTRIAL CLEANING TECHNICIAN disease and stenosis of right vertebral origin. Seen by vascular surgery, no revascularization recommended. Minimal residual visual field defect on discharge. Discharged on new Eliquis. Persistent AF Severe MR secondary to flail P2 leaflet post mitral valve repair with angioplasty ring (29 mm Guevara ring) 07/24/2012 Dr. Jayjay Torres Brief Postoperative atrial fibrillation No significant CAD on cardiac cath in 2012 Dyslipidemia Hypertension Prior PVCs Most recent lipids: 10/2024: Total cholesterol 25, triglycerides 144, HDL 58, LDL 80, A1c 4.7 07/2021: Total cholesterol 99, triglycerides 130, HDL 61, LDL 102 Recent cardiovascular studies- Echo 10/2024: EF 55%, moderate AI, mild mitral stenosis post angioplasty ring, mild MR Echo 01/2023: LVEF 55%, moderate LVH, borderline dilated RV with normal function. Well-functioning mitral valve repair with mild mitral stenosis (MG 3.7 at 59 bpm) mild MR, moderate AI, DD 2. Normal RA/PA Stress (exercise echo) (06/2017): Negative. 6: 53, 8.3 METS, EF 60%, mild LVH, DD 1, no MR, mild mitral stenosis Family history: No premature CAD or SCD Social history: Non-smoker. . Previously worked in [employer] for [employer] Allergies Allergy/AdvReac Type Severity Reaction Status Date / Time No Known Allergies Allergy Verified 11/27/24 15:38 Home Medications Medication Instructions Recorded Confirmed Type alprazolam 0.5 mg tablet (Xanax) 0.5 mg PO BID PRN Anxiety 10/14/21 01/20/25 History atorvastatin 40 mg tablet 40 mg PO DAILY 10/14/21 01/20/25 History levothyroxine 137 mcg tablet 137 mcg PO DAILYBB 10/14/21 01/20/25 History lisinopril 40 mg tablet 40 mg PO QAM 10/14/21 01/20/25 History metoprolol succinate 100 mg 50 mg PO BID 10/14/21 01/20/25 History tablet,extended release 24 hr trazodone 50 mg tablet 50 mg PO HS 10/14/21 01/20/25 History amlodipine 10 mg tablet 10 mg PO QAM 11/15/24 01/20/25 History aspirin 81 mg tablet,delayed 81 mg PO QAM #30 tabs 11/18/24 01/20/25 Rx release apixaban 5 mg tablet (Eliquis) 5 mg PO BID 01/20/25 01/20/25 History Patient History Medical History (Updated 01/20/25 @ 16:48 by Fabiana Mayorga PA-C) Cardioembolic stroke COPD (chronic obstructive pulmonary disease) History of anxiety Surgical History (Updated 01/20/25 @ 16:41 by Fabiana Mayorga PA-C) Status post right hip replacement (~11/2021) [place] of cardiac cath 2012, [place], no stents; f/u German Key>sent to [facility] for Mitral Valve Repair following. Hx of tonsillectomy Hx of colonoscopy Hx of cataract extraction bilat. Hx of mitral valve repair 07/2012, [facility], "repaired valve, did not replace it"; f/u Dr. Brett Rhodes esteal Social History Smoking Status: Never smoker Second Hand Exposure: No; Do You Dip or Chew Tobacco: No; Hx Alcohol Use: Yes Alcohol type: wine Hx Substance Use: No Preferred Language: Comoran Communication Ability: Effective Telegraph Inspector Required: No Beliefs That Will Affect Care: None Current Living Situation: Spouse Other Information That Helps Us Care for You: No Feels Safe at Home: Yes Safety Concerns: Feels Safe At This Time Assistive Devices: None Review of Systems Review of Systems: All systems reviewed & are unremarkable except as noted in HPI & below Physical Exam Physical Exam: General: Comfortable HEENT: Sclerae anicteric Lungs: Decreased breath sounds at bases bilaterally Cardiac: Irregular irregular, 2 out of 6 systolic ejection murmur heard best the right upper sternal border, faint diastolic murmur heard over left lower sternal border Vascular: 2+ radial Abdomen: Soft, nontender Extremities: Well perfused, no peripheral edema, no varicose veins or reticular veins. Neuro: Nonfocal Psych: Alert orient x3, normal affect and mood Results & Data Vital Signs (Past 12 Hours) Vital Signs Temp Pulse Resp BP Pulse Ox O2 Del Method O2 Flow Rate 01/21/25 09:20 Nasal Cannula 2 01/21/25 07:40 98.1 F 100 H 18 150/94 H 93 Nasal Cannula 3 01/21/25 02:53 98.2 F 86 18 159/89 H 91 Nasal Cannula 3 01/20/25 23:07 97.5 F L 85 18 149/66 H 96 Nasal Cannula 3 PG Care Time/CCT Total # of Minutes Spent Total Time Spent with Patient: Total time spent is greater than 50% in coordination of care (as documented) at patient's floor/unit and/or counseling patient: Coding Level of Care Code 63863 INT INP/OBS CARE 2/55MIN Diagnoses CHF (congestive heart failure) I50.9
--- NOTE | 2025-01-21 12:26 | Electrocardiogram Report ---
Test Reason : Blood Pressure : */* mmHG Vent. Rate : 94 BPM Atrial Rate : * BPM P-R Int : * ms QRS Dur : 96 ms QT Int : 368 ms P-R-T Axes : * -34 83 degrees QTcB Int : 460 ms Atrial fibrillation Left axis deviation Anterior infarct (cited on or before 15-Nov-2024) Abnormal ECG When compared with ECG of 27-Nov-2024 15:41, (unconfirmed) QRS axis Shifted left T wave inversion no longer evident in Anterior leads Nonspecific T wave abnormality now evident in Lateral leads Confirmed by Daniel Mathew ([id number]) on 01/21/2025 12:26:38 PM Referred By: REFERRED SELF Confirmed By: Daniel Mathew
--- NOTE | 2025-01-21 12:51 | Hospitalist Progress Note ---
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 CHF, new onset Dyspnea, 4# wt gain x 5 days BNP 552 CXR with cardiomegaly. Moderate pulmonary edema with moderate left and small right pleural effusions with associated bibasilar opacities which could represent atelectasis or consolidation Last echo 11/10 with mild MS, mild MR Given 40mg IV lasix in ED Clinically better since admission but is still requiring 2 L to maintain saturation Will continue Lasix at the current dose Echo of the heart showednormal LV size, moderate concentric LVH, LVEF 60 to 65% without any regional wall motion abnormalities, normal RV size and mildly reduced function, moderate aortic regurgitation, post mitral valve repair with annuloplasty ring mild mitral stenosis and mild to moderate mitral regurgitation moderate pulmonary hypertension and compared with prior study of 11/16/2024 pulmonary hypertension is new Likely diastolic heart failure with atrial fibrillation with RVRresolved now Appreciate cardiology input and recommendation Leukocytosis Reactive but CT chest wo con pending to better evaluate for PNA given cough and congestion No source of infection and the white count remains mildly elevated at 13.96 Atrial fibrillation Diagnosed in October in setting of cardioembolic stroke Has been persistent but rate controlled per Dr. Tyson Anticoagulated on Eliquis Continue Toprol Heart rate is controlled at 72 currently continue current medications H/o Embolic CVA S/P TNK at 1921 on 11/15/24 Continue aspirin, Eliquis, statin Hypertension Continue Toprol, amlodipine, lisinopril Dyslipidemia Continue Statin Graves' disease s/p surgery Postsurgical hypothyroidism Continue levothyroxine Will recheck TSH Anxiety PRN home Xanax DVT Ppx: Eliquis Code status: FULL PCP: MANDEEP Floers Dispo: Admitted to PCU Admission and Anticipated Discharge Date Admission Date: January 20, 2025 Subjective 01/21/2025 The patient was seen and examined in telemetry unit Admitted with exertional shortness of breath and also weight gain for about 4 to 5 pounds in 1 week Denies any palpitations and/or chest pain Has been feeling much better since admission Review of Systems Review of Systems: All systems reviewed and unremarkable except as noted below Physical Exam Physical Exam: Lying in bed without any acute distress Constitutional: well developed, well nourished and + ill appearing Eyes: PERRL, conjunctivae normal, anicteric sclerae ENMT: external ear and nose normal, oropharynx normal Neck: trachea midline, no thyromegaly Respiratory: + respiratory distress (Minimal respirat ory distress at rest.) Auscultation: + diminished lung sounds and + crackles (Bibasilar crackles) Cardiovascular: Rate/Rhythm: + irregularly irregular; not tachycardic Heart Sounds: normal S1 and normal S2; no murmur Extremities: + edema (Trace edema bilaterally) Gastrointestinal (Abdomen): Inspection/Auscultation: normal bowel sounds; abdomen not distended Percussion/Palpation: abdomen soft; abdomen nontender Musculoskeletal: No acute arthritis involving any of the joint Neurologic: normal touch/pain/proprioception and moves all extremities; no focal motor deficits Lymphatic: no cervical or axillary lymphadenopathy Results & Data Results & Data Vital Signs (Past 12 Hours) Vital Signs Temp Pulse Pulse Resp BP Pulse Ox O2 Del Method 01/21/25 11:31 36.6 C 72 18 120/72 92 Nasal Cannula 01/21/25 11:08 94 H 01/21/25 09:20 Nasal Cannula 01/21/25 07:40 36.7 C 100 H 18 150/94 H 93 Nasal Cannula 01/21/25 02:53 36.8 C 86 18 159/89 H 91 Nasal Cannula O2 Flow Rate 01/21/25 11:31 2 01/21/25 11:08 01/21/25 09:20 2 01/21/25 07:40 3 01/21/25 02:53 3 Laboratory Results Short CBC 01/21/25 Range/Units 05:44 WBC 13.96 H (4.8-10.8) K/ul Hgb 12.1 (12.0-16.0) g/dl Hct 36.9 L (37.0-47.0) % Plt Count 436 H (130-400) K/uL BMP 01/20/25 01/21/25 12:10 05:44 Sodium 132 L 136 Potassium 3.3 L 4.0 D Chloride 99 105 Carbon Dioxide 23 23 BUN 13 12 Creatinine 0.59 L 0.58 L Glucose 124 H 102 H Calcium 9.7 8.7 Liver Function 01/20/25 Range/Units 12:10 Total Bilirubin 1.0 (0.2-1.0) mg/dl AST 25 (13-39) U/L ALT 23 (7-52) U/L Alkaline Phosphatase 97 (34-104) U/L Albumin 4.4 (3.4-5.0) gm/dl Urine 01/20/25 Range/Units 14:44 Urine Color Yellow Urine Appearance Clear (Clear) Urine pH 6.5 (4.5-7.5) Ur Specific [place] 1.008 (1.000-1.030) Urine Protein Negative (Negative) Urine Glucose (UA) Negative (Negative) Vomiting okay so potassium has been replaced there is good bilirubin is fine. Okay Medications Administered Current Inpatient Medications Acetaminophen (Acetaminophen 325 Mg Tab) 650 mg PO Q4H PRN PRN Reason: Pain or Fever Stop: 02/19/25 16:04 Alprazolam (Alprazolam 0.5 Mg Tablet) 0.5 mg PO BID PRN PRN Reason: Anxiety Stop: 02/19/25 15:56 Last Admin: 01/20/25 20:12 Dose: 0.5 mg Amlodipine Besylate (Amlodipine Bes[place] 5 Mg Tab) [facility] [place]: 02/20/25 08:59 Last Admin: 01/21/25 09:00 Dose: 10 mg Apixaban (Apixaban 5 Mg Tablet) 5 mg PO BID [facility] Stop: 02/19/25 20:59 Last Admin: 01/21/25 09:00 Dose: 5 mg Aspirin (Aspirin 81 Mg Ectab) [facility] [place]: 02/20/25 08:59 Last Admin: 01/21/25 09:01 Dose: 81 mg Atorvastatin Calcium (Atorvastatin 40 Mg Tab) 40 mg PO DAILY [facility] Stop: 02/20/25 08:59 Last Admin: 01/21/25 09:00 Dose: 40 mg Furosemide (Furosemide 40 Mg/4 Ml Vial) 40 mg IV DAILY [facility] Stop: 02/20/25 08:59 Last Admin: 01/21/25 09:02 Dose: 40 mg Levothyroxine Sodium (Levothyroxine Sodium 137 Mcg Tablet) 137 mcg PO DAILYBB [facility] Stop: 02/20/25 06:29 Last Admin: 01/21/25 06:45 Dose: 137 mcg Lisinopril (Lisinopril 40 Mg Tab) 40 mg PO QAM [facility] Stop: 02/20/25 08:59 Last Admin: 01/21/25 09:00 Dose: 40 mg Melatonin (Melatonin 3 Mg Tab) 3 mg PO HS PRN PRN Reason: Sleep Stop: 02/19/25 16:04 Metoprolol Succinate (Metoprolol Succ 50mg Ext Rel Tab) 50 mg PO BID [facility] Stop: 02/19/25 20:59 Last Admin: 01/21/25 09:00 Dose: 50 mg Ondansetron HCl (Ondansetron Inj 2 Mg/Ml 2 Ml Vial) 4 mg IV Q6H PRN PRN Reason: Nausea Stop: 02/19/25 16:04 Polyethylene Glycol (Polyethylene (Miralax) 17 Gm Pack) 17 gm PO DAILY PRN PRN Reason: Constipation Stop: 02/19/25 16:04 Trazodone HCl (Trazodone Hcl 50 Mg Tab) 50 mg PO HS [facility] Stop: 02/19/25 20:59 Last Admin: 01/20/25 20:06 Dose: 50 mg Suspected CHF
[2025-01-21] MEDS: POLYETHYLENE (MIRALAX) 17 GM PACK PO PRN (17:47)
[2025-01-22 04:30] LABS: Appearance Urine Cloudy (Clear); Bacteria Urine Automated 4+ (None Seen); Glucose Urine UA Negative (Negative); RBC Urine Automated >20 /hpf (0-2); WBC Urine Automated >50 /hpf (0-5)
[2025-01-22 06:03] LABS: Hematocrit (blood only) 35.6 % (37.0-47.0); Hemoglobin 11.7 g/dl (12.0-16.0); Immature Granulocytes # (auto) 0.04 K/uL (0.01-0.20); Immature Granulocytes % (auto) 0.4 %; Mean Corpuscular Hemoglobin 28.6 pg (25.0-34.0); Mean Corpuscular Volume 87.0 fL (80.0-100.0); Platelet Count 421 K/uL (130-400); RDW Standard Deviation 50.0 fL (36.4-46.3); Red Blood Count 4.09 M/uL (4.20-5.40); White Blood Count 10.73 K/ul (4.8-10.8)
[2025-01-22 06:22] LABS: Anion Gap 8.0 (3-11); Blood Urea Nitrogen 12.0 mg/dl (6-23); Calcium 8.5 mg/dl (8.6-10.3); Carbon Dioxide 27.0 mmol/L (21-32); Chloride 103.0 mmol/L (98-107); Creatinine Clr Calc Pharmacy 75.3 ml/min; Glucose 100.0 mg/dl (70-99(Fasting)); Magnesium 2.0 mg/dl (1.7-2.4); Potassium 3.6 mmol/L (3.5-5.1); Sodium 138.0 mmol/L (136-145)
[2025-01-22 06:37] LABS: Thyroid Stimulating Hormone 1.969 uIu/ml (0.300-4.500)
[2025-01-22] MEDS: cefTRIAXone SODIUM 2,000 MG/50 ML BAG IV SCH (10:05)
--- NOTE | 2025-01-22 14:30 | Hospitalist Progress Note ---
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 CHF, new onset Dyspnea, 4# wt gain x 5 days BNP 552 CXR with cardiomegaly. Moderate pulmonary edema with moderate left and small right pleural effusions with associated bibasilar opacities which could represent atelectasis or consolidation Last echo 11/10 with mild MS, mild MR Given 40mg IV lasix in ED Clinically better since admission but is still requiring 2 L to maintain saturation Will continue Lasix at the current dose Echo of the heart showednormal LV size, moderate concentric LVH, LVEF 60 to 65% without any regional wall motion abnormalities, normal RV size and mildly reduced function, moderate aortic regurgitation, post mitral valve repair with annuloplasty ring mild mitral stenosis and mild to moderate mitral regurgitation moderate pulmonary hypertension and compared with prior study of 11/16/2024 pulmonary hypertension is new Likely diastolic heart failure with atrial fibrillation with RVRresolved now Appreciate cardiology input and recommendation Has been diuresing enough with Lasix IV 40 mg twice daily Clinically much better today Awaiting cardiology evaluation today Leukocytosis Reactive but CT chest wo con pending to better evaluate for PNA given cough and congestion No source of infection and the white count remains mildly elevated at 13.96 Urine examination showed possible UTI and the urine was sent for culture Ceftriaxone 2 g IV daily has been started Atrial fibrillation Diagnosed in October in setting of cardioembolic stroke Has been persistent but rate controlled per Dr. Tyson Anticoagulated on Eliquis Continue Toprol Heart rate is controlled at 72 currently continue current medications Cardiology is deciding about cardioversion H/o Embolic CVA S/P TNK at 1921 on 11/15/24 Continue aspirin, Eliquis, statin Hypertension Continue Toprol, amlodipine, lisinopril Dyslipidemia Continue Statin Graves' disease s/p surgery Postsurgical hypothyroidism Continue levothyroxine Will recheck TSH Anxiety PRN home Xanax DVT Ppx: Eliquis Code status: FULL PCP: MANDEEP Flores Dispo: Admitted to PCU Admission and Anticipated Discharge Date Admission Date: January 20, 2025 Subjective 01/21/2025 The patient was seen and examined in telemetry unit Admitted with exertional shortness of breath and also weight gain for about 4 to 5 pounds in 1 week Denies any palpitations and/or chest pain Has been feeling much better since admission 01/22/2025 The patient was seen and examined in telemetry unit She has been feeling much better regarding her edema of the legs and also shortness of breath Denies any chest pain and/or palpitation Complaint to have urinary frequency with burning Review of Systems Review of Systems: All systems reviewed and unremarkable except as noted below Physical Exam Physical Exam: Lying in bed without any acute distress Constitutional: well developed, well nourished and + ill appearing Eyes: PERRL, conjunctivae normal, anicteric sclerae ENMT: external ear and nose normal, oropharynx normal Neck: trachea midline, no thyromegaly Respiratory: + respiratory distress (Minimal respirat ory distress at rest.) Auscultation: + diminished lung sounds and + crackles (Bibasilar crackles) Cardiovascular: Rate/Rhythm: + irregularly irregular; not tachycardic Heart Sounds: normal S1 and normal S2; no murmur Extremities: + edema (Trace edema bilaterally) Gastrointestinal (Abdomen): Inspection/Auscultation: normal bowel sounds; abdomen not distended Percussion/Palpation: abdomen soft; abdomen nontender Neurologic: normal touch/pain/proprioception and moves all extremities; no focal motor deficits Lymphatic: no cervical or axillary lymphadenopathy Results & Data Results & Data Vital Signs (Past 12 Hours) Vital Signs Temp Pulse Pulse Resp BP Pulse Ox O2 Del Method 01/22/25 11:34 36.9 C 82 18 138/58 L 95 Nasal Cannula 01/22/25 08:00 82 01/22/25 08:00 Nasal Cannula 01/22/25 07:53 37.3 C 75 18 114/64 95 Nasal Cannula 01/22/25 03:36 36.9 C 82 18 134/61 95 Nasal Cannula O2 Flow Rate 01/22/25 11:34 2 01/22/25 08:00 01/22/25 08:00 2 01/22/25 07:53 2 01/22/25 03:36 2.0 Laboratory Results Short CBC 01/22/25 Range/Units 05:43 WBC 10.73 (4.8-10.8) K/ul Hgb 11.7 L (12.0-16.0) g/dl Hct 35.6 L (37.0-47.0) % Plt Count 421 H (130-400) K/uL BMP 01/22/25 05:43 Sodium 138 Potassium 3.6 Chloride 103 Carbon Dioxide 27 BUN 12 Creatinine 0.62 Glucose 100 H Calcium 8.5 L Urine 01/22/25 Range/Units 04:15 Urine Color Yellow Urine Appearance Cloudy A (Clear) Urine pH 6.5 (4.5-7.5) Ur Specific [place] 1.017 (1.000-1.030) Urine Protein 1+ H (Negative) Urine Glucose (UA) Negative (Negative) Medications Administered Current Inpatient Medications Acetaminophen (Acetaminophen 325 Mg Tab) 650 mg PO Q4H PRN PRN Reason: Pain or Fever Stop: 02/19/25 16:04 Alprazolam (Alprazolam 0.5 Mg Tablet) 0.5 mg PO BID PRN PRN Reason: Anxiety Stop: 02/19/25 15:56 Last Admin: 01/21/25 20:30 Dose: 0.5 mg Amlodipine Besylate (Amlodipine Besylate 5 Mg Tab) [facility] [place]: 02/20/25 08:59 Last Admin: 01/22/25 08:33 Dose: 10 mg Apixaban (Apixaban 5 Mg Tablet) 5 mg PO BID [facility] Stop: 02/19/25 20:59 Last Admin: 01/22/25 08:33 Dose: 5 mg Aspirin (Aspirin 81 Mg Ectab) 81 mg PO QAM [facility] Stop: 02/20/25 08:59 Last Admin: 01/22/25 08:34 Dose: 81 mg Atorvastatin Calcium (Atorvastatin 40 Mg Tab) 40 mg PO DAILY [facility] Stop: 02/20/25 08:59 Last Admin: 01/22/25 08:34 Dose: 40 mg Furosemide (Furosemide 40 Mg/4 Ml Vial) 40 mg IV BID17 [facility] Stop: 02/20/25 16:59 Last Admin: 01/22/25 08:33 Dose: 40 mg Ceftriaxone Sodium (Rocephin) 2,000 mg in 50 mls @ 100 mls/hr IV Q24H [facility] Stop: 01/27/25 08:59 Last Infusion: 01/22/25 10:36 Dose: Infused Levothyroxine Sodium (Levothyroxine Sodium 137 Mcg Tablet) 137 mcg PO DAILYBB [facility] Stop: 02/20/25 06:29 Last Admin: 01/22/25 05:54 Dose: 137 mcg Lisinopril (Lisinopril 40 Mg Tab) 40 mg PO QAM [facility] Stop: 02/20/25 08:59 Last Admin: 01/22/25 08:33 Dose: 40 mg Melatonin (Melatonin 3 Mg Tab) 3 mg PO HS PRN PRN Reason: Sleep Stop: 02/19/25 16:04 Metoprolol Succinate (Metoprolol Succ 50mg Ext Rel Tab) 50 mg PO BID [facility] Stop: 02/19/25 20:59 Last Admin: 01/22/25 08:34 Dose: 50 mg Ondansetron HCl (Ondansetron Inj 2 Mg/Ml 2 Ml Vial) 4 mg IV Q6H PRN PRN Reason: Nausea Stop: 02/19/25 16:04 Polyethylene Glycol (Polyethylene (Miralax) 17 Gm Pack) 17 gm PO DAILY PRN PRN Reason: Constipation Stop: 02/19/25 16:04 Last Admin: 01/21/25 17:47 Dose: 17 gm Trazodone HCl (Trazodone Hcl 50 Mg Tab) 50 mg PO HS [facility] Stop: 02/19/25 20:59 Last Admin: 01/21/25 20:34 Dose: 50 mg
--- NOTE | 2025-01-22 22:00 | Cardiology Progress Note ---
Date of Service January 22, 2025 Assessment & Plan (1) CHF (congestive heart failure): Plan: 2. Mitral valve repairPostrepair with annuloplasty ring 2012. Mild MS, mild to moderate MR on echo 02/10 3. Persistent AFdiagnosed 10/2024 in the setting of CVA. Asymptomatic, [id number] 7. On Eliquis 4. Moderate AI 5. DyslipidemiaLDL 80 10/2024, coronary artery calcification on chest CT 6. HypertensionCCB, MAKENNA, BB 7. Mild ICA disease, [employer]/vertebral disease 8. Graves' disease post GOMEZ Improved dyspnea, nearing baseline Weight down 6 pounds from admission. Negative almost 3 L. Improved pulmonary congestion on exam. Plan on continued IV diuresis today. Likely transition to p.o. diuretics tomorrow Start SGLT2 (no history of UTIs/yeast infections). Likely will add spironolactone at some point Continue to monitor I's/O's, daily weights, creatinine Continue current Eliquis, Toprol-XL Continue current amlodipine, lisinopril Continue statin Plan on cardioversion with anesthesia tomorrow to see if any symptomatic benefit. If recurrent heart failure episodes as an outpatient may need further evaluation of valvular disease/AI with MORENITA Will continue to follow. Potentially home tomorrow. Will need close follow-up with me and CHF clinic. Admission and Anticipated Discharge Date Admission Date: January 20, 2025 Subjective Feeling better today. Breathing easier. Denies any chest pain. No other new complaints. Telemetry reviewedno events, remains in rate controlled atrial fibrillation. Review of Systems Review of Systems: All systems reviewed & are unremarkable except as noted in HPI & below Physical Exam Physical Exam: General: Comfortable HEENT: Sclerae anicteric Lungs: Minimally decreased breath sounds to bases bilaterally Cardiac: Irregular irregular, 2 out of 6 systolic ejection murmur heard best the right upper sternal border, faint diastolic murmur heard over left lower sternal border Vascular: 2+ radial Abdomen: Soft, nontender Extremities: Well perfused, no peripheral edema, no varicose veins or reticular veins. Neuro: Nonfocal Psych: Alert orient x3, normal affect and mood Results & Data Vital Signs (Past 12 Hours) Vital Signs Temp Pulse Pulse Resp BP Pulse Ox O2 Del Method 01/22/25 19:58 98.8 F 82 18 128/71 95 Nasal Cannula 01/22/25 16:00 01/22/25 15:36 98.8 F 105 H 18 107/71 95 Nasal Cannula 01/22/25 15:00 83 01/22/25 11:34 98.4 F 82 18 138/58 L 95 Nasal Cannula O2 Del Method O2 Flow Rate O2 Flow Rate 01/22/25 19:58 2 01/22/25 16:00 Nasal Cannula 2 01/22/25 15:36 2 01/22/25 15:00 01/22/25 11:34 2 PG Care Time/CCT Total # of Minutes Spent Total Time Spent with Patient: Total time spent is greater than 50% in coordination of care (as documented) at patient's floor/unit and/or counseling patient: Coding Level of Care Code 65474 SUB INP/OBS CARE 2/35MIN Diagnoses CHF (congestive heart failure) I50.9
[2025-01-23 06:16] LABS: Hematocrit (blood only) 40.0 % (37.0-47.0); Hemoglobin 12.8 g/dl (12.0-16.0); Immature Granulocytes # (auto) 0.04 K/uL (0.01-0.20); Immature Granulocytes % (auto) 0.3 %; Mean Corpuscular Hemoglobin 28.3 pg (25.0-34.0); Mean Corpuscular Volume 88.5 fL (80.0-100.0); Platelet Count 483 K/uL (130-400); RDW Standard Deviation 50.5 fL (36.4-46.3); Red Blood Count 4.52 M/uL (4.20-5.40); White Blood Count 12.16 K/ul (4.8-10.8)
[2025-01-23 06:39] LABS: Anion Gap 12.0 (3-11); Blood Urea Nitrogen 15.0 mg/dl (6-23); Calcium 9.1 mg/dl (8.6-10.3); Carbon Dioxide 26.0 mmol/L (21-32); Chloride 101.0 mmol/L (98-107); Creatinine Clr Calc Pharmacy 59.6 ml/min; Glucose 106.0 mg/dl (70-99(Fasting)); Potassium 3.6 mmol/L (3.5-5.1); Sodium 139.0 mmol/L (136-145)
[2025-01-23 09:13] LABS: Magnesium 2.1 mg/dl (1.7-2.4)
--- NOTE | 2025-01-23 11:22 | Hospitalist Progress Note ---
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 CHF, new onset Dyspnea, 4# wt gain x 5 days BNP 552 CXR with cardiomegaly. Moderate pulmonary edema with moderate left and small right pleural effusions with associated bibasilar opacities which could represent atelectasis or consolidation Last echo 11/10 with mild MS, mild MR Given 40mg IV lasix in ED Clinically better since admission but is still requiring 2 L to maintain saturation Will continue Lasix at the current dose Echo of the heart showednormal LV size, moderate concentric LVH, LVEF 60 to 65% without any regional wall motion abnormalities, normal RV size and mildly reduced function, moderate aortic regurgitation, post mitral valve repair with annuloplasty ring mild mitral stenosis and mild to moderate mitral regurgitation moderate pulmonary hypertension and compared with prior study of 11/16/2024 pulmonary hypertension is new Likely diastolic heart failure with atrial fibrillation with RVRresolved now Appreciate cardiology input and recommendation Has been diuresing enough with Lasix IV 40 mg twice daily Clinically much better today Awaiting cardiology evaluation today Clinically much better and denies any respiratory and/or urinary symptoms Will change diuretics to oral Will discharge spironolactone and Jardiance likely on discharge as per recommendation Leukocytosis - urinary tract infection Reactive but CT chest wo con pending to better evaluate for PNA given cough and congestion No source of infection and the white count remains mildly elevated at 13.96 Urine examination showed possible UTI and the urine was sent for culture Ceftriaxone 2 g IV daily has been started Urine culture is growing Klebsiella variicola and sensitivities pending Atrial fibrillation Diagnosed in October in setting of cardioembolic stroke Has been persistent but rate controlled per Dr. Tyson Anticoagulated on Eliquis Continue Toprol Heart rate is controlled at 72 currently continue current medications Cardiology is planning to do cardiovert today H/o Embolic CVA S/P TNK at 1921 on 11/15/24 Continue aspirin, Eliquis, statin Hypertension Continue Toprol, amlodipine, lisinopril Dyslipidemia Continue Statin Graves' disease s/p surgery Postsurgical hypothyroidism Continue levothyroxine Will recheck TSH Anxiety PRN home Xanax DVT Ppx: Eliquis Code status: FULL PCP: MANDEEP Flores Dispo: Admitted to PCU Likely discharge this afternoon following cardioversion Admission and Anticipated Discharge Date Admission Date: January 20, 2025 Subjective 01/21/2025 The patient was seen and examined in telemetry unit Admitted with exertional shortness of breath and also weight gain for about 4 to 5 pounds in 1 week Denies any palpitations and/or chest pain Has been feeling much better since admission 01/22/2025 The patient was seen and examined in telemetry unit She has been feeling much better regarding her edema of the legs and also shortness of breath Denies any chest pain and/or palpitation Complaint to have urinary frequency with burning 01/23/2025 The patient was seen and examined in telemetry unit She has been much better and denies any cardiac symptoms or any shortness of breath at rest She will have electrical cardioversion today Review of Systems Review of Systems: All systems reviewed and unremarkable except as noted below Physical Exam Physical Exam: Lying in bed without any acute distress Constitutional: well developed, well nourished and + ill appearing Eyes: PERRL, conjunctivae normal, anicteric sclerae ENMT: external ear and nose normal, oropharynx normal Neck: trachea midline, no thyromegaly Respiratory: + respiratory distress (Minimal respirat ory distress at rest.) Auscultation: + diminished lung sounds and + crackles (Bibasilar crackles) Cardiovascular: Rate/Rhythm: + irregularly irregular; not tachycardic Heart Sounds: normal S1 and normal S2; no murmur Extremities: + edema (Trace edema bilaterally) Gastrointestinal (Abdomen): Inspection/Auscultation: normal bowel sounds; abdomen not distended Percussion/Palpation: abdomen soft; abdomen nontender Neurologic: normal touch/pain/proprioception and moves all extremities; no focal motor deficits Lymphatic: no cervical or axillary lymphadenopathy Results & Data Results & Data Vital Signs (Past 12 Hours) Vital Signs Temp Pulse Pulse Resp BP BP Pulse Ox 01/23/25 11:15 87 01/23/25 11:15 93 H 01/23/25 07:46 36.6 C 95 H 20 114/63 95 01/23/25 03:31 36.8 C 101 H 18 120/54 L 93 01/23/25 00:31 36.7 C 93 H 16 125/69 96 O2 Del Method O2 Flow Rate 01/23/25 11:15 01/23/25 11:15 01/23/25 07:46 Nasal Cannula 2 01/23/25 03:31 Nasal Cannula 2.0 01/23/25 00:31 Nasal Cannula 2.0 Laboratory Results Short CBC 01/23/25 Range/Units 05:29 WBC 12.16 H (4.8-10.8) K/ul Hgb 12.8 (12.0-16.0) g/dl Hct 40.0 (37.0-47.0) % Plt Count 483 H (130-400) K/uL BMP 01/23/25 05:29 Sodium 139 Potassium 3.6 Chloride 101 Carbon Dioxide 26 BUN 15 Creatinine 0.76 Glucose 106 H Calcium 9.1 Medications Administered Current Inpatient Medications Acetaminophen (Acetaminophen 325 Mg Tab) 650 mg PO Q4H PRN PRN Reason: Pain or Fever Stop: 02/19/25 16:04 Alprazolam (Alprazolam 0.5 Mg Tablet) 0.5 mg PO BID PRN PRN Reason: Anxiety Stop: 02/19/25 15:56 Last Admin: 01/22/25 22:06 Dose: 0.5 mg Amlodipine Besylate (Amlodipine Besylate 5 Mg Tab) [facility] [place] Stop: 02/20/25 08:59 Last Admin: 01/23/25 09:29 Dose: 10 mg Apixaban (Apixaban 5 Mg Tablet) 5 mg PO BID [facility] Stop: 02/19/25 20:59 Last Admin: 01/23/25 09:29 Dose: 5 mg Aspirin (Aspirin 81 Mg Ectab) 81 mg PO QAM [facility] Stop: 02/20/25 08:59 Last Admin: 01/23/25 09:29 Dose: 81 mg Atorvastatin Calcium (Atorvastatin 40 Mg Tab) 40 mg PO DAILY [facility] Stop: 02/20/25 08:59 Last Admin: 01/23/25 09:29 Dose: 40 mg Furosemide (Furosemide 40 Mg/4 Ml Vial) 40 mg IV [id number] [facility] Stop: 02/20/25 16:59 Last Admin: 01/23/25 09:28 Dose: 40 mg Ceftriaxone Sodium (Rocephin) 2,000 mg in 50 mls @ 100 mls/hr IV Q24H [facility] Stop: 01/27/25 08:59 Last Infusion: 01/23/25 10:38 Dose: Infused Levothyroxine Sodium (Levothyroxine Sodium 137 Mcg Tablet) 137 mcg PO DAILYBB [facility] Stop: 02/20/25 06:29 Last Admin: 01/23/25 07:30 Dose: 137 mcg Lisinopril (Lisinopril 40 Mg Tab) 40 mg PO QAM [facility] Stop: 02/20/25 08:59 Last Admin: 01/23/25 09:29 Dose: 40 mg Melatonin (Melatonin 3 Mg Tab) 3 mg PO HS PRN PRN Reason: Sleep Stop: 02/19/25 16:04 Metoprolol Succinate (Metoprolol Succ 50mg Ext Rel Tab) 50 mg PO BID [facility] Stop: 02/19/25 20:59 Last Admin: 01/23/25 09:29 Dose: 50 mg Ondansetron HCl (Ondansetron Inj 2 Mg/Ml 2 Ml Vial) 4 mg IV Q6H PRN PRN Reason: Nausea Stop: 02/19/25 16:04 Polyethylene Glycol (Polyethylene (Miralax) 17 Gm Pack) 17 gm PO DAILY PRN PRN Reason: Constipation Stop: 02/19/25 16:04 Last Admin: 01/21/25 17:47 Dose: 17 gm Trazodone HCl (Trazodone Hcl 50 Mg Tab) 50 mg PO HS [facility] Stop: 02/19/25 20:59 Last Admin: 01/22/25 22:06 Dose: 50 mg
[2025-01-23 12:09] VITALS: TEMP 98.1
--- NOTE | 2025-01-23 14:13 | Anesthesiology Consultation ---
Date of Service January 23, 2025 Assessment & Plan (1) Encounter for pre-operative examination: Chart Review Chart Review: Acceptable Risk for Surgery and Patient NOT seen in Pre Admission Testing Consults Requested none History Surgery Operation Date: 01/23/25 13:00 Proposed Procedures p Cardioversion Director Multimedia w/Anesthesia - Severino Tyson MD Height/Weight Height: 5 ft 3 in Weight: 71.3 kg Allergies Allergy/AdvReac Type Severity Reaction Status Date / Time No Known Allergies Allergy Verified 11/27/24 15:38 Medications Home Medications Medication Instructions Recorded Confirmed Last Taken alprazolam 0.5 mg tablet (Xanax) 0.5 mg PO BID PRN Anxiety 10/14/21 01/20/25 11/17/21 23:00 atorvastatin 40 mg tablet 40 mg PO DAILY 10/14/21 01/20/25 11/15/24 levothyroxine 137 mcg tablet 137 mcg PO DAILYBB 10/14/21 01/20/25 11/15/24 lisinopril 40 mg tablet 40 mg PO QAM 10/14/21 01/20/25 11/15/24 metoprolol succinate 100 mg 50 mg PO BID 10/14/21 01/20/25 11/15/24 08:00 tablet,extended release 24 hr trazodone 50 mg tablet 50 mg PO HS 10/14/21 01/20/25 11/14/24 amlodipine 10 mg tablet 10 mg PO QAM 11/15/24 01/20/25 11/15/24 aspirin 81 mg tablet,delayed 81 mg PO QAM #30 tabs 11/18/24 01/20/25 Unknown release apixaban 5 mg tablet (Eliquis) 5 mg PO BID 01/20/25 01/20/25 Unknown Active Medications Generic Name Dose Route Start Last Admin Trade Name Freq PRN Reason Stop Dose Admin Alprazolam 0.5 mg 01/20/25 15:57 01/22/25 22:06 Alprazolam 0.5 Mg Tablet PO 02/19/25 15:56 0.5 mg BID PRN Administration Anxiety Amlodipine Besylate 10 mg 01/21/25 09:00 01/23/25 09:29 Amlodipine Besylate 5 Mg Tab PO 02/20/25 08:59 10 mg QAM [facility] Administration Apixaban 5 mg 01/20/25 21:00 01/23/25 09:29 Apixaban 5 Mg Tablet PO 02/19/25 20:59 5 mg BID [facility] Administration Aspirin 81 mg 01/21/25 09:00 01/23/25 09:29 Aspirin 81 Mg Ectab PO 02/20/25 08:59 81 mg QAM [facility] Administration Atorvastatin Calcium 40 mg 01/21/25 09:00 01/23/25 09:29 Atorvastatin 40 Mg Tab PO 02/20/25 08:59 40 mg DAILY [facility] Administration Furosemide 40 mg 01/21/25 17:00 01/23/25 09:28 Furosemide 40 Mg/4 Ml Vial IV 02/20/25 16:59 40 mg [id number] [facility] Administration Ceftriaxone Sodium 2,000 mg in 50 mls @ 100 mls/hr 01/22/25 09:00 01/23/25 10:38 Rocephin IV 01/27/25 08:59 Infused Q24H [facility] Infusion Levothyroxine Sodium 137 mcg 01/21/25 06:30 01/23/25 07:30 Levothyroxine Sodium 137 Mcg Tablet PO 02/20/25 06:29 137 mcg DAILYBB [facility] Administration Lisinopril 40 mg 01/21/25 09:00 01/23/25 09:29 Lisinopril 40 Mg Tab PO 02/20/25 08:59 40 mg QAM [facility] Administration Metoprolol Succinate 50 mg 01/20/25 21:00 01/23/25 09:29 Metoprolol Succ 50mg Ext Rel Tab PO 02/19/25 20:59 50 mg BID [facility] Administration Polyethylene Glycol 17 gm 01/20/25 16:05 01/21/25 17:47 Polyethylene (Miralax) 17 Gm Pack PO 02/19/25 16:04 17 gm DAILY PRN Administration Constipation Trazodone HCl 50 mg 01/20/25 21:00 01/22/25 22:06 Trazodone Hcl 50 Mg Tab PO 02/19/25 20:59 50 mg HS [facility] Administration Past Medical History Medical History (Updated 01/23/25 @ 14:15 by Asim Mcdonald MD) Encounter for pre-operative examination Hx of Graves' disease 2001, "treatment to have my thyroid radioactived out of me" Cerebral artery disease Carotid stenosis, bilateral Pulmonary edema CHF (congestive heart failure) Cardioembolic stroke COPD (chronic obstructive pulmonary disease) History of anxiety Past Surgical History Surgical History Status post right hip replacement (~11/2021) Hx of cardiac cath 2012, [place], no stents; f/u [facility]>sent to [facility] for Mitral Valve Repair following. Hx of tonsillectomy Hx of colonoscopy Hx of cataract extraction bilat. Hx of mitral valve repair 07/2012, [facility], "repaired valve, did not replace it"; [facility] Social History Smoking Status: Never smoker Do You Dip or Chew Tobacco: No Hx Alcohol Use: Yes Alcohol type: wine alcohol intake frequency: a few times a week Hx Substance Use: No substance use type: does not use Physical Exam Vital Signs Last Vital Signs Temp 36.7 C 01/23/25 12:06 Pulse 87 01/23/25 12:06 Resp 22 01/23/25 12:06 BP 122/61 01/23/25 12:06 Pulse Ox 95 01/23/25 12:06 O2 Del Method Nasal Cannula 01/23/25 12:06 O2 Flow Rate 2 01/23/25 12:06 Testing Laboratory Results 01/23/25 05:29 01/23/25 05:29 PT 11.8 Seconds (9.0-12.0) 01/20/25 12:10 INR 1.1 (0.9-1.1) 01/20/25 12:10 Urine Color Yellow 01/22/25 04:15 Urine Appearance Cloudy (Clear) A 01/22/25 04:15 Urine pH 6.5 (4.5-7.5) 01/22/25 04:15 Ur Specific [place] 1.017 (1.000-1.030) 01/22/25 04:15 Urine Protein 1+ (Negative) H 01/22/25 04:15 Urine Glucose (UA) Negative (Negative) 01/22/25 04:15 Urine Ketones Negative (Negative) 01/22/25 04:15 Urine Nitrite Positive (Negative) A 01/22/25 04:15 Ur Leukocyte Esterase 3+ (Negative) H 01/22/25 04:15 Urine WBC (Auto) >50 /hpf (0-5) H 01/22/25 04:15 Urine RBC (Auto) >20 /hpf (0-2) H 01/22/25 04:15 U Hyaline Cast (Auto) 3-5 /lpf (0-2) H 01/22/25 04:15 U Epithel Cells (Auto) 6-10 /hpf (0-2) H 01/22/25 04:15 Urine Bacteria (Auto) 4+ (None Seen) H 01/22/25 04:15 01/22/25 04:15 Urine Culture - Preliminary Urine,Clean Catch Klebsiella variicola Electrocardiogram a fib, see ecg for details
[2025-01-23 14:27] VITALS: RESP 18
--- NOTE | 2025-01-23 14:43 | Anesthesiology Progress Note ---
Date of Service January 23, 2025 Anesthesia Post Procedure Vital Signs Vital Signs: Temp Pulse Pulse Resp BP BP Pulse Ox 01/23/25 14:30 82 01/23/25 14:25 36.7 C 109 H 18 129/77 95 01/23/25 12:06 36.7 C 87 22 122/61 95 01/23/25 11:16 01/23/25 11:15 87 01/23/25 11:15 93 H 01/23/25 07:46 36.6 C 95 H 20 114/63 95 01/23/25 03:31 36.8 C 101 H 18 120/54 L 93 01/23/25 00:31 36.7 C 93 H 16 125/69 96 01/22/25 21:00 01/22/25 19:58 37.1 C 82 18 128/71 95 01/22/25 16:00 01/22/25 15:36 37.1 C 105 H 18 107/71 95 01/22/25 15:00 83 O2 Del Method O2 Del Method O2 Flow Rate O2 Flow Rate 01/23/25 14:30 01/23/25 14:25 Oxymask 01/23/25 12:06 Nasal Cannula 2 01/23/25 11:16 Nasal Cannula 2 01/23/25 11:15 01/23/25 11:15 01/23/25 07:46 Nasal Cannula 2 01/23/25 03:31 Nasal Cannula 2.0 01/23/25 00:31 Nasal Cannula 2.0 01/22/25 21:00 Nasal Cannula 2 01/22/25 19:58 Nasal Cannula 2 01/22/25 16:00 Nasal Cannula 2 01/22/25 15:36 Nasal Cannula 2 01/22/25 15:00 Transfer of Care Handoff Completed per policy Notes Mental Status: alert / awake / arousable and participated in evaluation Patient Amnestic to Procedure: Yes Nausea / Vomiting: adequately controlled Pain: adequately controlled Airway Patency, RR, SpO2: stable & adequate BP & HR: stable & adequate Hydration State: stable & adequate Anesthetic Complications: no major complications apparent and Pt Satisfied with anesthetic care
--- NOTE | 2025-01-23 14:46 | Cardioversion ---
Date of Service January 23, 2025 PG Electrical Cardioversion Rp Electrical Cardioversion Report Indication: Persistent atrial fibrillation, heart failure Procedure: Anesthesia with propofol per Dr. Mcdonald Pads placed in the AP position Shock at 200 J with conversion to sinus rhythm then SVT versus atypical flutter. Second shock at 300 J with conversion to sinus rhythm Patient tolerated procedure well Summary: 1. Successful electrical cardioversion Recommendations: Continue anticoagulation with Eliquis uninterrupted for 4 weeks Coding Level of Care Code 37297 CARDIOVERSION, ELECTIVE Additional Codes Electrical Cardioversion Report ([id number])
--- NOTE | 2025-01-23 14:53 | Cardiology Progress Note ---
Date of Service January 23, 2025 Assessment & Plan (1) CHF (congestive heart failure): Plan: 2. Mitral valve repairPostrepair with annuloplasty ring 2012. Mild MS, mild to moderate MR on echo 02/10 3. Persistent AFdiagnosed 10/2024 in the setting of CVA. Asymptomatic, [id number] 7. On Eliquis 4. Moderate AI 5. DyslipidemiaLDL 80 10/2024, coronary artery calcification on chest CT 6. HypertensionCCB, MAKENNA, BB 7. Mild ICA disease, [employer]/vertebral disease 8. Graves' disease post GOMEZ Improved dyspnea, breathing now near baseline Weight down 10 pounds from admission. -5 L No significant congestion on exam. Underwent successful electrical cardioversion this afternoon. From a cardiac standpoint okay with discharge today Transition to p.o. Lasix 40 mg daily Continue Eliquis uninterrupted for next 4 weeks Continue Toprol-XL, lisinopril Start Jardiance Can replace amlodipine with spironolactone on discharge or can be done as an outpatient Continue statin Instructed about daily weights, salt restriction Will arrange follow-up with me in 1 to 2 weeks. If recurrent heart failure episodes as an outpatient may need further evaluation of valvular disease/AI with MORENITA Appreciate hospital medicine care Admission and Anticipated Discharge Date Admission Date: January 20, 2025 Subjective Feeling well today. Denies significant shortness of breath. Negative another 1400 Weight down another 4 pounds today Review of Systems Review of Systems: All systems reviewed & are unremarkable except as noted in HPI & below Physical Exam Physical Exam: General: Comfortable HEENT: Sclerae anicteric Lungs: Clear bilaterally Cardiac: Irregular irregular, 2 out of 6 systolic ejection murmur heard best the right upper sternal border Vascular: 2+ radial Abdomen: Soft, nontender Extremities: Well perfused, no peripheral edema, no varicose veins or reticular veins. Neuro: Nonfocal Psych: Alert orient x3, normal affect and mood Results & Data Vital Signs (Past 12 Hours) Vital Signs Temp Pulse Pulse Resp BP BP Pulse Ox 01/23/25 14:30 82 01/23/25 14:25 98.1 F 109 H 18 129/77 95 01/23/25 12:06 98.1 F 87 22 122/61 95 01/23/25 11:16 01/23/25 11:15 87 01/23/25 11:15 93 H 01/23/25 07:46 97.9 F 95 H 20 114/63 95 01/23/25 03:31 98.2 F 101 H 18 120/54 L 93 O2 Del Method O2 Flow Rate 01/23/25 14:30 01/23/25 14:25 Oxymask 01/23/25 12:06 Nasal Cannula 2 01/23/25 11:16 Nasal Cannula 2 01/23/25 11:15 01/23/25 11:15 01/23/25 07:46 Nasal Cannula 2 01/23/25 03:31 Nasal Cannula 2.0 PG Care Time/CCT Total # of Minutes Spent Total Time Spent with Patient: Total time spent is greater than 50% in coordination of care (as documented) at patient's floor/unit and/or counseling patient: Coding Level of Care Code 61168 SUB INP/OBS CARE 3/50MIN Diagnoses CHF (congestive heart failure) I50.9
[2025-01-23 15:03] VITALS: PULSE 72; O2SAT 94
[2025-01-23 15:54] VITALS: BP 122/61
--- NOTE | 2025-01-23 16:08 | Discharge Summary ---
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 Patient was notably SOB when walking into an appointment last week and then noticed she was SOB at rest while watching TV 5 days ago. Associated with palpitations. Since then, SOB has progressed and also endorses dry cough and nasal congestion. Thought at first she was having allergies but SOB persisted through the weekend into today, prompting presentation in ED. Notes 4# weight gain in 5 days despite poor appetite. [place] warm last evening but did not take temperature. No chills, headache, lightheadedness, CP, N/V, abd pain, dysuria, diarrhea or constipation. Follows with Dr. Tyson for cardiology and was last see mid-November. Last echo in 10/2024 with mild MS, mild MR. A fib has been persistent since diagnosis 10/2024 in setting of CVA. Asymptomatic and rate controlled since then. Anticoagulated on Eliquis. Admission Exam Per Admitting Provider Physical Exam: General Appearance: WD/WN, vitals as above, NAD, sitting up in bed, pleasant, conversing easily Head: normocephalic, atraumatic Eyes: normal inspection, PERRL, conjunctivae normal, anicteric sclerae ENT: external ear and nose normal, oropharynx normal Neck: normal visual inspection Respiratory: increased respiratory effort, diminished at bases bilaterally. No accessory muscle use Cardiovascular: irregular rate & rhythm, normal peripheral pulses, no BLE edema. Vessels: + JVD Chest: normal inspection of chest Abdomen/GI: normal bowel sounds, soft, nontender, no hepatosplenomegaly Extremities/Musculoskeletal: no cyanosis or clubbing, extremities motor strength 5/5 Neurologic: PERRL, EOMI, accommodation nl, no face palsy, no dysarthria, CN's II-XI intact bilaterally and moves all extremities Psychiatric: A+Ox3, euthymic affect Skin: no rashes, normal color, warm/dry Principal Diagnosis CHF, persistent A-fib status post cardioversion, Graves' disease, hypertension Discharge Exam Lying in bed without any acute distress Constitutional well developed, well nourished and + ill appearing Eyes PERRL, conjunctivae normal, anicteric sclerae ENMT external ear and nose normal, oropharynx normal Neck trachea midline, no thyromegaly Respiratory + respiratory distress (Minimal respiratory distress at rest.) Auscultation: + diminished lung sounds and + crackles (Bibasilar crackles) Cardiovascular Rate/Rhythm: + irregularly irregular; not tachycardic Heart Sounds: normal S1 and normal S2; no murmur Extremities: + edema (Trace edema bilaterally) Gastrointestinal (Abdomen) Inspection/Auscultation: normal bowel sounds; abdomen not distended Percussion/Palpation: abdomen soft; abdomen nontender Neurologic normal touch/pain/proprioception and moves all extremities; no focal motor deficits Lymphatic no cervical or axillary lymphadenopathy Discharge Data Allergies Allergy/AdvReac Type Severity Reaction Status Date / Time No Known Allergies Allergy Verified 01/23/25 14:30 Consultations 01/20/25 14:46 ED Decision to Admit Stat 01/20/25 15:55 Consult Cardiology Routine Procedures Performed Operation Date: 01/23/25 13:00 Actual Procedures p Cardioversion - Severino Tyson MD Ordered Studies 01/20/25 16:09 CT chest diagnostic wo con Urgent Hospital Course (1) Acute hypoxemic respiratory failure: (2) CHF (congestive heart failure): (3) Acute hypokalemia: (4) Hypertension: (5) Cardioembolic stroke: (6) Hx of mitral valve prolapse: (7) Hx of Graves' disease: Plan This is a 74yo F with PMH of with recent cardioembolic stroke 11/15/24 with atrial fibrillation diagnosed at that time, history of left atrial enlargement, s/p mitral valve repair, hypertension, dyslipidemia, Graves' disease s/p surgery, postsurgical hypothyroidism, 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 CHF, new onset Dyspnea, 4# wt gain x 5 days BNP 552 CXR with cardiomegaly. Moderate pulmonary edema with moderate left and small right pleural effusions with associated bibasilar opacities which could represent atelectasis or consolidation Last echo 11/10 with mild MS, mild MR Given 40mg IV lasix in ED Clinically better since admission but is still requiring 2 L to maintain saturation Will continue Lasix at the current dose Echo of the heart showednormal LV size, moderate concentric LVH, LVEF 60 to 65% without any regional wall motion abnormalities, normal RV size and mildly reduced function, moderate aortic regurgitation, post mitral valve repair with annuloplasty ring mild mitral stenosis and mild to moderate mitral regurgitation moderate pulmonary hypertension and compared with prior study of 11/16/2024 pulmonary hypertension is new Likely diastolic heart failure with atrial fibrillation with RVRresolved now Appreciate cardiology input and recommendation Has been diuresing enough with Lasix IV 40 mg twice daily Clinically much better today Awaiting cardiology evaluation today Clinically much better and denies any respiratory and/or urinary symptoms Will change diuretics to oral Will discharge spironolactone and Jardiance likely on discharge as per recommendation Leukocytosis - urinary tract infection Reactive but CT chest wo con pending to better evaluate for PNA given cough and congestion No source of infection and the white count remains mildly elevated at 13.96 Urine examination showed possible UTI and the urine was sent for culture Ceftriaxone 2 g IV daily has been started Urine culture is growing Klebsiella variicola and sensitivities pending Atrial fibrillation Diagnosed in October in setting of cardioembolic stroke Has been persistent but rate controlled per Dr. Tyson Anticoagulated on Eliquis Continue Toprol Heart rate is controlled at 72 currently continue current medications Cardiology is planning to do cardiovert today H/o Embolic CVA S/P TNK at 1921 on 11/15/24 Continue aspirin, Eliquis, statin Hypertension Continue Toprol, amlodipine, lisinopril Dyslipidemia Continue Statin Graves' disease s/p surgery Postsurgical hypothyroidism Continue levothyroxine Will recheck TSH Anxiety PRN home Xanax DVT Ppx: Eliquis Code status: FULL PCP: MANDEEP Flores Dispo: Admitted to PCU Likely discharge this afternoon following cardioversion Total Time Total Time Spent Total Time Spent (In Minutes): 35 Minutes Discharge Plan Discharge Items Patient Disposition: Home - Self-Care Reason For Visit: CHF, HYPOXIA Discharge Diagnosis: CHF, persistent A-fib status post cardioversion, Graves' disease, hypertension Condition on Discharge: Good Activity: Resume your previous activity Non-emergency contact: Primary Care Provider Call non-emergency contact if: you have any medication questions and your symptoms worsen Follow-up/Referrals: Sierra [email or web address] [Primary Care Provider] - (Date & Time 01/29/2025 1:40 PM Provider: Larissa Johnston PA-C [facility] ) Diet: Heart Healthy and Low Sodium (2gm) Addtl Attending Provider Instructions: Please take precautions to avoid falls Take your medications as advised- Lasix 40 mg daily, Jardiance 10 mg to start and amlodipine will replaced by spironolactone 12.5 mg Continue other medications Please keep appointment with the healthcare providers Pending Studies at Discharge: No Stand-Alone Forms: My [facility] [place], Smoking Cessation Medications and DC Order Prescriptions: New furosemide 40 mg tablet 40 mg PO DAILY Qty: 30 0RF spironolactone 25 mg tablet 12.5 mg PO DAILY Qty: 30 0RF Jardiance 10 mg tablet 10 mg PO DAILY Qty: 30 0RF Continued atorvastatin 40 mg Tablet 40 mg PO DAILY trazodone 50 mg Tablet 50 mg PO HS levothyroxine 137 mcg Tablet 137 mcg PO DAILYBB metoprolol succinate 100 mg Tablet Extended Release 24 Hr 50 mg PO BID alprazolam [Xanax] 0.5 mg Tablet 0.5 mg PO BID PRN (Reason: Anxiety) lisinopril 40 mg Tablet 40 mg PO QAM Hold Instructions: Resume on 11/25/24. Eliquis 5 mg tablet 5 mg PO BID aspirin 81 mg Tablet,Delayed Release (Dr/Ec) 81 mg PO QAM Qty: 30 0RF Discontinued amlodipine 10 mg tablet 10 mg PO QAM Hold Instructions: Resume on 11/20/24. Discharge Orders: Discharge Order (Routine); Ordered 01/23/25 Ordered By: Isra Aviles Discharge Order- CHF (Routine); Ordered 01/23/25 Ordered By: Isra Aviles Admission Data Admit Date/Time: 01/20/25 14:57 Attending Provider: Isra Aviles Admit Provider: Corbin Reyes Primary Care Provider: Sierra Flores Other Providers: Corbin Reyes; Severino Tyson Other Interventions: Discharge Summary Assessment (RN) Last Done: 01/23/25 15:54
--- NOTE | 2025-01-26 08:56 | Electrocardiogram Report ---
Test Reason : Blood Pressure : */* mmHG Vent. Rate : 71 BPM Atrial Rate : 71 BPM P-R Int : 244 ms QRS Dur : 106 ms QT Int : 430 ms P-R-T Axes : 19 12 35 degrees QTcB Int : 467 ms Sinus rhythm with sinus arrhythmia with 1st degree A-V block Septal infarct (cited on or before 15-Nov-2024) Possible Inferior infarct , age undetermined Abnormal ECG When compared with ECG of 20-Jan-2025 12:00, Sinus rhythm has replaced Atrial fibrillation Nonspecific T wave abnormality no longer evident in Lateral leads Confirmed by Kana Evans ([id number]) on 01/26/2025 8:56:13 AM Referred By: REFERRED SELF Confirmed By: Kana Evans
== END 2025-01-23 17:09 | disposition home or self-care (01) | DRG 291 ==
LOC: ED 11:44 → SUATTDRO 14:57 → 2E 14:57 → INTOOBSV 14:57 → 2E 16:03